=== PATIENT | male | born 1970 ===

== ENCOUNTER 2016-11-13 21:14 | Emergency (ER) | payer BC ==
[2016-11-13 21:25] VITALS: BP 144/95
[2016-11-13] MEDS ORDERED: DOXYcycline CAP(*) 100 MG PO ONE (21:35)
--- NOTE | 2016-11-13 21:43 | UC ---
Skin Complaint HPI - HPI Summary HPI Summary: WORKS A [employer], HAS BUG BITE ON RIGHT BACK. RED SWOLLEN AREA, NOTICED YESTERDAY. NO FEVER. NO JOINT ACHES. NO TICK VISUALIZED OR EMBEDDED. - History of Current Complaint Chief Complaint: UCSkin Time Seen by Provider: 11/13/16 21:26 Stated Complaint: POSSIBLE TICK BITE Hx Obtained From: Patient Onset/Duration: Sudden Onset, Lasting Days, Still Present Skin Exposure Onset/Duration: Days Ago Onset Severity: Mild Current Severity: Mild Location: Discrete Character: Swelling Aggravating: Nothing Alleviating: Nothing Associated Signs & Symptoms: Positive: Negative, Rash. Negative: Fever, Chills , Cough, Drainage, Tenderness, Red Streaks Related History: Insect Bite/Sting - Allergy/Home Medications Allergies/Adverse Reactions: Allergies Allergy/AdvReac Type Severity Reaction Status Date / Time No Known Allergies Allergy Verified 11/13/16 21:17 Review of Systems Constitutional: Negative Skin: Rash Eyes: Negative ENT: Negative Respiratory: Negative Cardiovascular: Negative Gastrointestinal: Negative Genitourinary: Negative Motor: Negative Neurovascular: Negative Musculoskeletal: Negative Neurological: Negative Psychological: Negative All Other Systems Reviewed And Are Negative: Yes PMH/Surg Hx/FS Hx/Imm Hx Previously Healthy: Yes Endocrine History Of: Reports: Thyroid Disease Cardiovascular History Of: Reports: Hypertension - not on meds Denies: Cardiac Disorders Respiratory History Of: Denies: Asthma, Bronchitis - Surgical History Surgical History: Yes Surgery Procedure, Year, and Place: Thyroidectomy, 2006, [facility] - Family History Known Family History: Positive: None - Social History Occupation: Employed Full-time Lives: With Family Alcohol Use: None Substance Use Type: None Smoking Status (MU): Never Smoked Tobacco Physical Exam Triage Information Reviewed: Yes Appearance: Well-Appearing, No Pain Distress, Well-Nourished Vital Signs: Initial Vital Signs Temp 98.3 F 11/13/16 21:19 Pulse 82 11/13/16 21:19 Resp 16 11/13/16 21:19 BP 144/95 11/13/16 21:19 Pulse Ox 98 11/13/16 21:19 Vital Signs Reviewed: Yes Eye Exam: Normal ENT Exam: Normal ENT: Positive: Normal ENT inspection, Hearing grossly normal, Pharynx normal, TMs normal Dental Exam: Normal Neck exam: Normal Neck: Positive: Supple, Nontender Respiratory Exam: Normal Respiratory: Positive: Chest non-tender, Lungs clear, Normal breath sounds, No respiratory distress, No accessory muscle use Cardiovascular Exam: Normal Cardiovascular: Positive: RRR, No Murmur Abdominal Exam: Normal Musculoskeletal Exam: Normal Musculoskeletal: Positive: Strength Intact, ROM Intact Neurological Exam: Normal Psychological Exam: Normal Skin: Positive: rashes Course/Dx - Differential Diagnoses - Skin Complaint Differential Diagnoses: Cellulitis, Tick Born Illness - Diagnoses Provider Diagnoses: RIGHT LOWER BACK INSECT BITE Discharge - Discharge Plan Condition: Stable Disposition: HOME Patient Education Materials: Insect Bite or Sting (ED), Tick Bite (ED) Referrals: Amauri HOUSTON,Izaiah Mcdaniel [Primary Care Provider] -
== END 2016-11-13 21:42 | disposition home or self-care (01) ==
LOC: UCCORT 21:14
DX: S30.860A Insect bite (nonvenomous) of lower back and pelvis, initial encounter (principal); W57.XXXA Bitten or stung by nonvenomous insect and other nonvenomous arthropods, initial encounter; Y93.9 Activity, unspecified; Y92.9 Unspecified place or not applicable; E07.9 Disorder of thyroid, unspecified; I10 Essential (primary) hypertension
CPT/HCPCS: 99212; A9270-GY; G0463

== ENCOUNTER 2017-05-12 18:45 | Emergency (ER) | payer BC ==
[2017-05-12 18:55] VITALS: BP 155/90
--- NOTE | 2017-05-12 19:19 | UC ---
Lower Extremity/Ankle HPI - HPI Summary HPI Summary: C/O right lower leg pain, anteriorly with some swelling. Started after using a backhoe over 14 hours but was using foot controls continuously. - History of Current Complaint Chief Complaint: UCLowerExtremity Stated Complaint: RIGHT LEG COMPLAINT Time Seen by Provider: 05/12/17 19:09 Hx Obtained From: Patient Onset/Duration: Sudden Onset, Lasting Weeks - 2, Still Present Severity Initially: Severe - with movement or touching. Severity Currently: Moderate - at rest Aggravating Factor(s): Other Alleviating Factor(s): Rest Able to Bear Weight: Yes - Risk Factors Gout Risk Factors: Age Over 40, Male - Allergies/Home Medications Allergies/Adverse Reactions: Allergies Allergy/AdvReac Type Severity Reaction Status Date / Time No Known Allergies Allergy Verified 05/12/17 18:55 PMH/Surg Hx/FS Hx/Imm Hx Endocrine History: Hypothyroidism - Surgical History Surgical History: Yes Surgery Procedure, Year, and Place: Thyroidectomy, 2006, [facility] - Family History Known Family History: Positive: Cardiac Disease, Hypertension, Diabetes - Social History Occupation: Employed Full-time Lives: With Family Alcohol Use: None Substance Use Type: None Smoking Status (MU): Never Smoked Tobacco Have You Smoked in the Last Year: No Review of Systems Musculoskeletal: Edema Is Patient Immunocompromised?: No All Other Systems Reviewed And Are Negative: Yes Physical Exam Triage Information Reviewed: Yes Appearance: Well-Appearing, No Pain Distress, Well-Nourished Vital Signs: Initial Vital Signs Temp 98.4 F 05/12/17 18:50 Pulse 86 05/12/17 18:50 Resp 16 05/12/17 18:50 BP 155/90 05/12/17 18:50 Pulse Ox 99 05/12/17 18:50 Vital Signs Reviewed: Yes Eyes: Positive: Conjunctiva Inflamed ENT: Positive: Pharynx normal, Nasal congestion - with allergic changes, TMs normal Neck exam: Normal Respiratory Exam: Normal Cardiovascular Exam: Normal Musculoskeletal Exam: Normal Musculoskeletal: Positive: Other: - Negative homans on the right lower leg. Tender with swollen area lower anterior myers. Neurological Exam: Normal Psychological Exam: Normal Skin Exam: Normal Lower Extremity Course/Dx - Differential Dx/Diagnosis Differential Diagnosis/HQI/PQRI: Contusion, DVT, Phlebitis Provider Diagnoses: Superficial thrombophlebitis right leg Discharge - Discharge Plan Condition: Stable Disposition: HOME Patient Education Materials: Superficial Thrombophlebitis (ED) Referrals: Amauri HOUSTON,Izaiah Mcdaniel [Primary Care Provider] - Additional Instructions: 325 mg of aspirin daily along with warm packs to get it to resolve.
== END 2017-05-12 19:37 | disposition home or self-care (01) ==
LOC: UCCORT 18:45
DX: I80.01 Phlebitis and thrombophlebitis of superficial vessels of right lower extremity (principal); E03.9 Hypothyroidism, unspecified
CPT/HCPCS: 99211; G0463